=== PATIENT | female | born 1970 | race Caucasian/White ===

== ENCOUNTER 2019-07-07 22:41 | Emergency (ER) | payer OTHER ==
[~2019-07-07] VITALS: Ht 157.5 cm; Wt 71.7 kg
[2019-07-07 23:02] VITALS: BP 122/81
--- NOTE | 2019-07-07 23:03 | NUR ---
TO LOBBY A/W BED , AMBULATORY
--- NOTE | 2019-07-08 02:00 | NUR ---
TO BED #01AMBULATORY
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
[2019-07-08 03:35] VITALS: BP 116/74
== END 2019-07-08 03:35 | disposition home or self-care (01) ==
LOC: MED 22:41
DX: S60.111A Contusion of right thumb with damage to nail, initial encounter (principal); W23.0XXA Caught, crushed, jammed, or pinched between moving objects, initial encounter; Y93.89 Activity, other specified; Y92.89 Other specified places as the place of occurrence of the external cause; Y99.8 Other external cause status
CPT/HCPCS: 73140; 99283; Q0092